=== PATIENT | female | born 1930 | race Caucasian/White ===

== ENCOUNTER 2016-07-22 18:32 | Inpatient (IN) ==
--- NOTE | 2016-07-22 19:14 | PROVIDER DOCUMENTATION ---
HPI-General Adult - General Chief Complaint: Weakness Stated Complaint: FALL Time Seen by Provider: 07/22/16 18:40 Source: patient Allergies/Adverse Reactions: Patient Allergies Allergy/AdvReac Type Severity Reaction Status Date / Time No Known Allergies Allergy Verified 07/11/16 10:10 Home Medications: Home Medication List Medication Instructions Recorded Confirmed Last Taken Type Duloxetine [Cymbalta] 60 mg PO DAILY 01/16/14 07/22/16 1 Day Ago History Gabapentin 300 mg PO TID 01/16/14 07/22/16 1 Day Ago History Triamterene/Hctz [Dyazide] 1 each PO DIRECTED 01/16/14 07/22/16 1 Day Ago History Metoprolol Succinate E.r. [Toprol 50 mg PO DAILY 07/31/14 07/22/16 1 Day Ago History Xl] Losartan Potassium [Cozaar] 100 mg PO QHS #0 08/01/14 07/22/16 1 Day Ago Rx Brimonidine/Timolol Ophth Soln 1 drop LEFT EYE BID 07/11/16 07/22/16 1 Day Ago History [Combigan Ophth Soln] Donepezil [Aricept] 10 mg PO DAILY 07/11/16 07/22/16 3 Days Ago History Dorzolamide 2% Oph Soln [Trusopt 1 drop LEFT EYE TID 07/11/16 07/22/16 1 Day Ago History 2% Oph Soln] Nitrofurantoin Monohyd/M-Cryst 100 mg PO 07/22/16 07/22/16 08:00 History [Macrobid 100 mg Capsule] - History of Present Illness -Gen Adult Nature of Presenting Problems: Pt. is 85 yof that presents with c/o weakness. Pt. family at bedside states that the patient was recently Dx with a UTI and was placed on Bactrim. Pt. began to become altered and the Bactrim was changed to Macrobid and the patient is still altered. Pt. denies any other symptoms and family reports she is lethargic. Location of Pain/Injury: reports: none. denies: head, face, mouth, neck, chest , upper extremity, hand(s), abdomen, back, pelvis, genitalia, lower extremity, feet, upper body, lower body, generalized Pain Radiation: reports: no radiation Quality of Pain: reports: none. denies: aching, burning, cramping, dull, fullness, indigestion, pressure, sharp, stabbing, tearing, throbbing, tightness Severity: reports: moderate. denies: mild, severe Onset/Duration: reports: unsure Timing: reports: still present. denies: improving, gone now, resolved prior to arrival, intermittent, constant, changing over time, getting worse Context/Activities at Onset: reports: none. denies: recent emotional stress, recent physical stress, recent trauma history, possible bad food, cold exposure , out of country travel Modifying Factors: improves with: nothing Associated Symptoms: reports: weakness, trouble walking. denies: anxiety, arm pain, back/neck pain, chest pain, constipation, cough, diaphoresis, diarrhea, dizziness, EENT symptoms, fatigue, fever/chills, genitourinary problems, headaches, heartburn, joint pain, loss of appetite, malaise, muscle aches, sinus congestion/drainage, nausea, rash, seizure, shortness of breath, sensory/ motor loss, pain with inspiration, swelling/mass in abdomen, syncope, vomiting Similar Symptoms Previously?: Yes Recently seen or treated by another doctor?: Yes Review of Systems - Adult - REVIEW OF SYSTEMS - ADULT Constitutional: reports: see HPI. denies: chills, fever, fatique Eyes: reports: see HPI. denies: discharge, blurred vision, double vision Ears, Nose, Mouth & Throat: reports: see HPI. denies: ear discharge, ear pain, hearing loss, sinus problem, nose pain, mouth/dental pain, throat swelling Cardiovascular: reports: see HPI. denies: chest pain, irregular heart rate, palpitations, syncope Respiratory: reports: see HPI. denies: cough, dyspnea on exertion, pleurisy, shortness of breath, wheezing Gastrointestinal: reports: see HPI. denies: abdominal pain, hematemesis, diarrhea, nausea, vomiting Genitourinary: reports: see HPI. denies: dysuria, discharge, hematuria, incontinence, urgency Musculoskeletal: reports: see HPI. denies: bone pain, back pain, joint pain, muscle aches, neck pain Integumentary: reports: see HPI. denies: hives, hair loss, itching, rash, skin thickening Neurological: reports: see HPI. denies: ataxia, headache/migraines, numbness, seizure, tremors Psychiatric: reports: see HPI. denies: anxiety, depression, emotional problems , insomnia, panic attacks, suicidal thoughts Past History - Adult - PAST MEDICAL HISTORY-ADULT Review of Records: reports: Old Records Reviewed, Nursing Assessment Review, Medications Reviewed, Social history reviewed & non-contributory. Major Childhood Illnesses: reports: denies history Cardiovascular: reports: HTN Respiratory: reports: denies history Gastrointestinal: reports: denies history Obstetrical/Gynecological: reports: denies history Genitourinary: reports: denies history Musculoskeletal: reports: other (neuropathy) Neurological: reports: Parkinson's Endocrine/Immune: reports: denies history Other Conditions: reports: denies history - PRIOR SURGERIES/PROCEDURES Surgical/Procedure History: reports: appendectomy, cholecystectomy, hysterectomy - IMMUNIZATION STATUS Childhood Immunizations: See Nurse Assessment Flu Vaccine: See Nurse Assessment - FAMILY HISTORY Family History: reviewed, not pertinent - SOCIAL HISTORY Smoking: non-smoker Physical Exam-General - PHYSICAL EXAM-ADULT Initial Vital Signs Reviewed: Yes - CONSTITUTIONAL General Appearance: moderate distress, obese, lethargic, slow to respond. negative: appears well, alert, thin, anxious, obtunded, combative - EYES Eyes: PERRL/EOMI, pink conjunctivae. negative: conjuctival exudate, scleral icterus, subconjunctival hemorrhage - HEAD, EARS, NOSE, MOUTH & THROAT HENMT: normocephalic/atraumatic, moist mucous membranes. negative: angioedema, frontal tenderness, maxillary tenderness - NECK Neck: non-tender, full range of motion, supple, normal inspection. negative: lymphadenopathy, trachial deviation, thyromegaly - RESPIRATORY Respiratory: lungs clear, normal breath sounds. negative: crackles, rales, rhonchi, stridor, wheezing - CARDIOVASCULAR Cardiovascular: regular rate, rhythm, no edema, no JVD, no murmur, tachycardia. negative: extra beats, friction rub, irregularly irregular - GASTROINTESTINAL (ABDOMEN) Abdominal Exam: normal bowel sounds, non tender, soft. negative: distended, guarding, rigid, rebound, tenderness, hernia, mass - LYMPHATIC Lymphatic: no adenopathy. negative: axilla node tender, cervical node tenderness - MUSCULOSKELETAL Back Exam: normal inspection, no CVA tenderness, no vertebral tenderness. negative: ecchymosis, swelling, vertebral tenderness Extremity: non-tender, normal inspection. negative: deformity, erythema, inflammation, swelling, tenderness Peripheral Pulses: radial (R): 2+, radial (L): 2+ - SKIN Integumentary: normal color, normal turgor, warm/dry. negative: cyanosis, diaphoresis, ecchymosis, erythema, jaundice, mottled, pallor, petechiae, purpura , rash, swelling, tenderness - NEUROLOGIC Neurologic: grossly normal, no motor/sensory deficits. negative: aphasia, facial droop, focal weakness, motor weakness, sensory deficit - PSYCHIATRIC Psych/Mental Status: disoriented x 3. negative: normal mood/affect, normal thought content, normal thought process, oriented x 3, anxious, paranoid, tearful Progress - PLAN OF CARE/RESULTS Progress/Plan/Lab Results: Vital Signs - 8 hr 07/22/16 18:35 Temperature 98.8 F Pulse Rate 107 H Respiratory Rate 18 Blood Pressure 143/87 O2 Sat by Pulse Oximetry 97 Orders Category Date Time Status FSBS [Finger Stick Blood Sugar (ED)] DIRECTED Care 07/22/16 19:08 Ordered Saline Loc NOW Care 07/22/16 19:07 Ordered CHEST-PORTABLE [RAD] Stat Exams 07/22/16 19:08 Ordered CBC WITH ELECTRONIC DIFF [HEME] Stat Lab 07/22/16 19:07 Uncollected CK PROFILE [SP CHEM] Stat Lab 07/22/16 19:07 Uncollected COMPREHENSIVE METABOLIC PANEL [CHEM] Stat Lab 07/22/16 19:07 Uncollected TROPONIN T Stat Lab 07/22/16 19:07 Uncollected URINALYSIS W/POSS RFLX CULT [URINALYSIS] Stat Lab 07/22/16 19:07 Uncollected EKG [EKG] Stat Ther 07/22/16 19:07 Ordered Discussed results and plan of care with patient. Patient agrees with plan and verbalizes understanding Discussed results and plan of care with Dr. Ng and he agrees with plan. Result Diagrams: 07/22/16 19:28 07/22/16 19:28 - XRAY 1 XRAY Study: Chest XRAY Interpretation: Bilateral infiltrates ([place]) - CT/MRI 1 CT Study: Head (No blood, Chronic ischemic changes, No hydro, sinuses clear ( [place])) CT Results: See note - CONSULTS/PCP/HOSPITALIST Notification #1 *Consult/PCP/Hospitalist*: Dr. Holcomb Time Discussed: 21:27 Reason/Comments: Admission Consult Disposition: Will see in ED, Admit Departure - Departure Time of Disposition Decision: 21:19 DIAGNOSIS: Hyponatremia Pneumonia Qualifiers: Pneumonia type: due to unspecified organism Laterality: bilateral Lung location : lower lobe of lung Qualified Code(s): J18.9 - Pneumonia, unspecified organism Disposition: ADMITTED INPATIENT 09 Certified Medical Emergency: Emergent Condition: Stable Referrals and Follow-Ups: Sulma Allen MD [Primary Care Provider] - Attestation - Physician/ MANDY Attestation Patient care was provided by Advanced Practice Provider:: Yes Advanced Practice Provider:: Khushi Elias Advanced Practice Provider documentation review:: The Mid-level provider documentation, treatment plan and medical decision making was reviewed by the physician who agrees with all treatment and medical decision making by the MLP.
[2016-07-22 20:42] LABS: BASO% 0.1 % (0.0-0.8); EOS# 0.61 X1000 (0.0-0.7); EOS% 2.6 % (0.0-10.0); HEMATOCRIT 39.7 % (37.0-47.0); HEMOGLOBIN 13.4 g/dL (12.0-16.0); IMM GRAN# 0.04 X1000 (0.0-0.04); IMM GRAN% 0.2 % (0.0-0.5); LYMPH# 1.36 X1000 (1.2-3.4); LYMPH% 5.8 % (20.5-51.1); MANUAL DIFF NEEDED? NO; MCH 27.8 PG (27-31); MCHC 33.8 g/dL (33-37); MCV 82.4 FL (81-99); MONO# 1.47 X1000 (0.11-0.59); MONO% 6.2 % (1.7-9.3); MPV 9.3 FL (7.4-10.4); NEUT% 85.1 % (42.2-75.2); PLT 306 X1000 (130-400); RBC 4.82 XMIL (4.2-5.4)
--- NOTE | 2016-07-22 20:53 | ED EKG INTERP ---
This chart was entered by Linda Bryan Scribe, acting as scribe for Walt Ng MD. EKG Interpretation - EKG Time of EKG reading by physician:: 19:19 EKG Read and Signed by:: Walt Ng EKG Interpretation (*Must complete 3 of following elements*): Abnormal Rate: 101 Rhythm: sinus tachycardia [place]: left QRS: LVH (minimal voltage criteria) This chart was documented by the indicated scribe, (Linda Bryan Scribe) and accurately reflects the services I performed and decisions made by me, Walt Ng MD, as attested by the provider's signature.
[2016-07-22 21:00] LABS: ALBUMIN 3.5 g/dL (3.5-5.0); CALCIUM 9.3 mg/dL (8.8-10.2); POTASSIUM 3.3 mmol/L (3.5-5.1); TOTAL BILIRUBIN 0.92 mg/dL (0.20-1.00); TOTAL PROTEIN 6.8 g/dL (6.3-8.3)
[2016-07-22] MEDS ORDERED: ROCEPHIN 1 GM/NS 1 GM/50 ML IVPB IV ONE (21:21)
[2016-07-22] MEDS ORDERED: ZITHROMAX 500 MG/NS 500 MG/250 ML IVPB IV ONE (21:22)
[2016-07-22 21:24] LABS: URINE SOURCE CATH
[2016-07-22 21:25] LABS: URINE EPITHELIAL CELLS <10 /HPF (<10); URINE RBC 20-40 /HPF (<10); URINE WBC <10 /HPF (<10)
[2016-07-22 21:26] LABS: BILIRUBIN URINE NEGATIVE (NEGATIVE); BLOOD URINE MODERATE (NEGATIVE); CLARITY CLEAR (CLEAR); COLOR YELLOW; GLUCOSE URINE NEGATIVE (NEGATIVE); NITRITE URINE NEGATIVE (NEGATIVE); PROTEIN URINE NEGATIVE (NEGATIVE); UROBILINOGEN URINE 0.2 EU/dL (0.2-1.0)
[2016-07-22 21:27] LABS: LEUKOCYTES URINE NEGATIVE (NEGATIVE); URINE CULTURE NEEDED? YES
--- NOTE | 2016-07-22 23:10 | HISTORY AND PHYSICAL ---
PRIMARY CARE PHYSICIAN: Dr. Sulma Allen. CHIEF COMPLAINT: Mental status changes and lethargy. HISTORY OF PRESENTING ILLNESS: An 85-year-old, elderly female, with a history of peripheral neuropathy, hypertension and dementia, basically requiring a walker to ambulate over the past 4 days or so, was having mental status changes. As per her son, the patient was recently diagnosed with the UTI, initially put on Bactrim and she had some side effects, and then antibiotics was changed to Macrobid and she had some improvement, but over past 2 days she declined again. She was becoming more confused, and was unable to get out of her bed, and subsequently the patient was brought to the emergency department. In the ER, she was evaluated. She was still moderately confused, however, she had denied any headache, chest pain, shortness of breath, hemoptysis or any weight changes. Patient is a poor historian, and as discussed, most of the history is obtained from her son. PAST MEDICAL HISTORY: Include peripheral neuropathy, hypertension, dementia. PAST SURGICAL HISTORY: Cholecystectomy, hysterectomy. ALLERGIES: No known drug allergies. CURRENT MEDICATIONS: Include Dyazide 1 tab p.o. daily, Cymbalta 60 mg p.o. daily, gabapentin 300 mg p.o. t.i.d., metoprolol succinate ER 50 mg p.o. daily, losartan 100 mg p.o. daily, Combigan 1 drop in left eye b.i.d., Aricept 10 mg p.o. daily, nitrofurantoin 100 mg p.o. daily. SOCIAL HISTORY: There is no history of smoking, alcohol or illicit drug use. Patient is only ambulatory with a walker. FAMILY HISTORY: No history of coronary disease. REVIEW OF SYSTEMS: Limited, however, her 10 point review of system was obtained as in HPI. PHYSICAL EXAMINATION: GENERAL: The patient is resting more comfortably now, but she is mildly confused. VITAL SIGNS: Temperature 98.8, pulse 107, respirations 18, blood pressure 143/ 87. She is sating 97%. HEENT: Atraumatic, normocephalic. PERRLA. NECK: No masses. CHEST: Bibasilar rales. CARDIOVASCULAR: Regular rate and rhythm. ABDOMEN: Soft. Positive bowel sounds. EXTREMITIES: Trace edema. NEURO: She is awake, alert, not really oriented to person, place or time. EXTREMITIES: Strength 4/5 bilateral lower extremities. : No bladder distention. SKIN: Warm. LABORATORIES AND STUDIES: Sodium 130, potassium 3.3, chloride 91, CO2 of 22, BUN is 19, creatinine is 1.1, glucose is 153. ProBNP is 993. WBCs 23.64, hemoglobin 13.4 , hematocrit 39.7, platelets 306,000. UA is negative for any white cells or bacteria. ASSESSMENT: An 85-year-old female, with a history of peripheral neuropathy, hypertension and dementia, who was brought to the emergency department due to worsening confusion. She was recently treated for a UTI, however, she only had some minimal improvement. She was evaluated in the ER, she was found to have an elevated white count, and also a chest x-ray that was suspicious for bilateral infiltrates, and due to these presenting symptoms, it was thought that she would need hospitalization for further management. ASSESSMENT: 1. Altered mental status, multifactorial, could be related to recent infection versus underlying dementia. 2. Leukocytosis. 3. Suspected pneumonia. 4. Mild hyponatremia. 5. Mild dehydration. 6. Hypertension. PLAN: 1. We will admit patient to medical floor with telemetry. 2. We will continue with neuro checks. 3. We will order a CT scan of the head without. 4. We will check blood cultures and start patient on IV antibiotics. 5. Continue with gentle hydration. 6. We will restart her home medications for her dementia. 7. We will monitor blood pressure, resume antihypertensive agent. 8. We will put patient on DVT for prophylaxis with SCDs. 9. The patient is a DNR level 1, as per son, who has had the durable healthcare power. 10. We will continue to follow and reassess. cc: MD PAO Li
[2016-07-22] MEDS ORDERED: NS 1,000 ML IV SCH (23:47)
[2016-07-23] MEDS ORDERED: NS 500 ML IV ONE (02:18)
[2016-07-23 06:30] LABS: BASO% 0.1 % (0.0-0.8); EOS# 0.47 X1000 (0.0-0.7); EOS% 2.4 % (0.0-10.0); HEMOGLOBIN 13.2 g/dL (12.0-16.0); IMM GRAN# 0.04 X1000 (0.0-0.04); IMM GRAN% 0.2 % (0.0-0.5); LYMPH# 1.01 X1000 (1.2-3.4); LYMPH% 5.1 % (20.5-51.1); MANUAL DIFF NEEDED? YES; MCH 28.2 PG (27-31); MCHC 33.8 g/dL (33-37); MCV 83.3 FL (81-99); MONO% 5.1 % (1.7-9.3); NEUT% 87.1 % (42.2-75.2); PLT 277 X1000 (130-400); RBC 4.68 XMIL (4.2-5.4)
[2016-07-23 06:36] LABS: AGAP 15; BUN 17 mg/dL (8-22); CALCIUM 8.7 mg/dL (8.8-10.2); CHLORIDE 95 mmol/L (98-107); COSMO 271; POTASSIUM 3.3 mmol/L (3.5-5.1); SODIUM 133 mmol/L (136-145); TCO2 23 mmol/L (25-35)
--- NOTE | 2016-07-23 06:53 | Diag Imaging Result Document ---
PROCEDURE NAME: HEAD W/O CONTRAST - 07/22/2016 CT BRAIN WITHOUT CONTRAST: COMPARISON: 07/31/2014. FINDINGS: No parenchymal hemorrhage. No epidural or subdural hematoma. No subarachnoid hemorrhage. There are chronic microvascular ischemic changes. No hydrocephalus. No mass identified on this noncontrasted study. No sinus opacification. IMPRESSION: 1. No hemorrhage. 2. Chronic microvascular ischemic changes. A preliminary report was given at 10:30 p.m..
--- NOTE | 2016-07-23 06:59 | Diag Imaging Result Document ---
PROCEDURE NAME: CHEST-PORTABLE - 07/22/2016 PORTABLE UPRIGHT CHEST: COMPARISON: 07/31/2014. FINDINGS: There are increased interstitial markings throughout both lungs on the current exam. I believe there is a small left effusion and the left hemidiaphragm may be elevated. The heart is not enlarged. IMPRESSION: Bilateral infiltrates believed to be pulmonary edema. Follow-up PA and lateral recommended.
[2016-07-23 07:34] LABS: BANDS 4 % (0-1); LYMPHS 6 % (21-51); MONO 2 % (1-9)
[2016-07-23] MEDS ORDERED: DUONEB (A & A) INH PRN (11:46)
--- NOTE | 2016-07-23 12:21 | Diag Imaging Result Document ---
PROCEDURE NAME: ANGIOGRAM/PULMONARY ARTERIES - 07/23/2016 CT PULMONARY ANGIOGRAM WITH INTRAVENOUS CONTRAST: A CT dose reduction protocol was used. COMPARISON: CT chest 12/20/2013. FINDINGS: Axial CT images of the chest were obtained after administering intravenous contrast. Coronal MIP images were generated. There is no definite pulmonary embolism. There is cardiomegaly. There is bilateral hilar adenopathy with nodes measuring up to 3.4 x 2.2 cm. There is central interstitial ground-glass infiltrate bilaterally and trace pleural effusions. This is compatible with pulmonary edema. There is also persistent pulmonary fibrosis. There is some consolidation in the left lower lobe as well. Upper abdominal images are normal. Degenerative changes of the spine. No acute or destructive bony lesions. IMPRESSION: 1. Cardiomegaly, pulmonary edema, pleural effusions. 2. Left lower lobe infiltrate/pneumonia. 3. Left hilar adenopathy, nonspecific. Followup will be necessary. [facility]
--- NOTE | 2016-07-23 12:38 | PROGRESS NOTE ---
DATE: 07/23/2016 SUBJECTIVE: The patient reports breathing better and feeling better. Denies any fever, chills, or shortness of breath. OBJECTIVE: Vital Signs: Temperature 97.7 degrees, heart rate 129, respiratory rate 17, blood pressure 164/83, and O2 saturation 99% on 4 liters nasal cannula. General: This is an 85-year- old female, lying in bed, in no acute distress. HEENT: Head is normocephalic, atraumatic. Anicteric sclerae and pale conjunctivae. Mucous membranes moist. Neck: Supple. No JVD noted. No carotid bruits. No lymphadenopathy. No thyromegaly. Cardiovascular: S1 and S2 heard. No murmurs, gallops, or rubs. Regular rate and rhythm. Respiratory: Clear bilaterally to auscultation. No work of breathing or using accessory muscles. Abdomen: Soft. Nontender to palpation. Bowel sounds present. No organomegaly. Extremities: No clubbing, cyanosis, or edema. Peripheral pulses present in both legs. Neurological: The patient is alert and oriented x3. Moves 4 extremities. LABORATORY DATA: White cell count 19.7, hemoglobin 13.2, hematocrit 39, platelets 277,000. Sodium 133, potassium 3.3, chloride 95, bicarbonate 23, creatinine 0.8, and BUN 17. ASSESSMENT: 1. Acute respiratory failure. 2. Community-acquired pneumonia. 3. Mild hyponatremia. 4. Hypertension. 5. Mild dehydration. PLAN: The patient was admitted to the hospital for the conditions as mentioned above. We are going to continue with IV antibiotics. In this case, we will continue with ceftriaxone, and we are going to add Levaquin to her current treatment. We will add a breathing treatment with albuterol and Atrovent every 4 hours p.r.n. considering that she is using 4 liters of oxygen by nasal cannula. Her hyponatremia is improved. We will continue with IV fluids. For her hypertension, considering that she is on Toprol-XL and losartan, we most generally add amlodipine to her current treatment. Further recommendations to follow according to the clinical situation of the patient. cc: Alexis Malik MD
[2016-07-23] MEDS: NEURONTIN PO SCH ×3 (13:25→17:44)
[2016-07-23] MEDS: CYMBALTA PO SCH (13:26)
[2016-07-23] MEDS: ARICEPT PO SCH (13:26)
[2016-07-23] MEDS: TOPROL XL PO SCH (13:26)
[2016-07-23] MEDS: COMBIGAN OPHTH SOLN LEFT EYE SCH ×2 (13:28→22:26)
[2016-07-23] MEDS: TRUSOPT 2% OPH SOLN LEFT EYE SCH ×4 (13:29→17:44)
[2016-07-23] MEDS: NORVASC PO SCH ×3 (13:48→22:26)
[2016-07-23] MEDS: LEVAQUIN 750 MG/D5W 750 MG/150 ML IVPB IV SCH (15:33)
[2016-07-23] MEDS: DUONEB (A & A) INH SCH ×3 (16:16→23:20)
[2016-07-23] MEDS ORDERED: ZITHROMAX 500 MG/NS 500 MG/250 ML IVPB IV SCH (22:00)
[2016-07-23] MEDS: COZAAR PO SCH ×2 (22:25→22:27)
[2016-07-23] MEDS: ROCEPHIN 1 GM/NS 1 GM/50 ML IVPB IV SCH (22:25)
[2016-07-23] MEDS: LASIX IV SCH (22:25)
[2016-07-24] MEDS: DUONEB (A & A) INH SCH ×6 (03:31→23:27)
[2016-07-24] MEDS: TRUSOPT 2% OPH SOLN LEFT EYE SCH ×3 (10:22→16:39)
[2016-07-24] MEDS: COMBIGAN OPHTH SOLN LEFT EYE SCH ×2 (10:22→20:52)
[2016-07-24] MEDS: NORVASC PO SCH ×2 (10:23→20:52)
[2016-07-24] MEDS: CYMBALTA PO SCH (10:23)
[2016-07-24] MEDS: ARICEPT PO SCH (10:24)
[2016-07-24] MEDS: NEURONTIN PO SCH ×3 (10:24→16:38)
[2016-07-24] MEDS: LASIX IV SCH ×2 (10:24→20:52)
[2016-07-24] MEDS: TOPROL XL PO SCH (10:25)
[2016-07-24 11:34] LABS: MANUAL DIFF NEEDED? NO
[2016-07-24 11:38] LABS: BASO% 0.2 % (0.0-0.8); EOS# 0.69 X1000 (0.0-0.7); EOS% 6.2 % (0.0-10.0); HEMOGLOBIN 12.1 g/dL (12.0-16.0); IMM GRAN# 0.03 X1000 (0.0-0.04); IMM GRAN% 0.3 % (0.0-0.5); MCH 28.3 PG (27-31); MCHC 33.6 g/dL (33-37); MCV 84.3 FL (81-99); MONO# 1.24 X1000 (0.11-0.59); MONO% 11.2 % (1.7-9.3); NEUT% 64.1 % (42.2-75.2); PLT 266 X1000 (130-400); RBC 4.27 XMIL (4.2-5.4)
[2016-07-24] MEDS: LEVAQUIN 750 MG/D5W 750 MG/150 ML IVPB IV SCH (11:42)
[2016-07-24 11:53] LABS: CALCIUM 8.2 mg/dL (8.8-10.2); POTASSIUM 3.4 mmol/L (3.5-5.1)
--- NOTE | 2016-07-24 15:24 | PROGRESS NOTE ---
DATE: 07/24/2016 SUBJECTIVE: Patient reports feeling better. No fever or chills. Breathing is definitely much better, according to her. OBJECTIVE: Vital Signs: Temperature 98.0 degrees, heart rate 94, respiratory rate 17, blood pressure 137/84, and O2 saturation 96% on room air. General Examination: This is an 85-year-old female, lying in bed in no acute distress. HEENT: Head is normocephalic, atraumatic. Anicteric sclerae and pale conjunctivae. Mucous membranes moist. Neck: Supple. No JVD noted. No carotid bruits. No lymphadenopathy. No thyromegaly. Cardiovascular Examination: S1 and S2 heard. No murmurs, gallops, or rubs. Regular rate and rhythm. Respiratory: Decreased breath globally with some coarse breath sounds in both bases, but the patient is not using any accessory muscles or having work of breathing. Abdomen: Soft, nontender to palpation. Bowel sounds present. No organomegaly. Extremities: No clubbing, cyanosis, or edema. Peripheral pulses present in both legs. Neurologic: Patient is alert and oriented x3. Able to move 4 extremities. LABORATORY DATA: White cell count of 11.12, hemoglobin 12.1, hematocrit 36.0, and platelets 266,000. BMP unremarkable except for mild elevation of creatinine to 1.2. ASSESSMENT AND PLAN: 1. Acute respiratory failure. 2. Community-acquired pneumonia. 3. Mild hyponatremia. 4. Hypertension. 5. Mild dehydration. PLAN: 1. The patient clinically is improving, using less oxygen. Her oxygen need is going down. Currently, she is using 2L of oxygen by nasal cannula. She is on ceftriaxone and Levaquin. Also, she is getting breathing treatments daily. At this point, we are going to continue with the same treatment. 2. For blood pressure, the patient is on Toprol-XL and losartan, and we have added amlodipine to her current treatment. Blood pressure is definitely much better controlled. At this time, we will continue with the same management. 3. Because patient is very weak, we have consulted the social work faculty member, as she most probably will need a rehabilitation facility. cc: Alexis Malik MD
[2016-07-24] MEDS: ROCEPHIN 1 GM/NS 1 GM/50 ML IVPB IV SCH (20:52)
[2016-07-24] MEDS: COZAAR PO SCH ×2 (20:52→20:53)
[2016-07-24] MEDS ORDERED: DUONEB (A & A) ONE (23:17)
[2016-07-25] MEDS ORDERED: CARDIZEM 100 MG/NS 100 MG/100 ML IVPB IV SCH (01:46)
[2016-07-25] MEDS ORDERED: CARDIZEM IV ONE (01:46)
[2016-07-25] MEDS: DUONEB (A & A) INH SCH ×6 (02:55→22:33)
[2016-07-25 06:19] LABS: MANUAL DIFF NEEDED? NO
[2016-07-25 06:24] LABS: BASO% 0.2 % (0.0-0.8); EOS# 0.58 X1000 (0.0-0.7); EOS% 4.7 % (0.0-10.0); HEMATOCRIT 36.7 % (37.0-47.0); HEMOGLOBIN 12.3 g/dL (12.0-16.0); IMM GRAN# 0.05 X1000 (0.0-0.04); IMM GRAN% 0.4 % (0.0-0.5); LYMPH# 2.77 X1000 (1.2-3.4); LYMPH% 22.6 % (20.5-51.1); MCH 28.3 PG (27-31); MCHC 33.5 g/dL (33-37); MCV 84.6 FL (81-99); MONO# 1.44 X1000 (0.11-0.59); MONO% 11.8 % (1.7-9.3); MPV 8.9 FL (7.4-10.4); NEUT% 60.3 % (42.2-75.2); PLT 272 X1000 (130-400); RBC 4.34 XMIL (4.2-5.4)
[2016-07-25 06:43] LABS: CALCIUM 8.8 mg/dL (8.8-10.2); POTASSIUM 3.3 mmol/L (3.5-5.1)
[2016-07-25] MEDS: ARICEPT PO SCH (08:35)
[2016-07-25] MEDS: CYMBALTA PO SCH (08:36)
[2016-07-25] MEDS: TOPROL XL PO SCH (08:36)
[2016-07-25] MEDS: LASIX IV SCH (08:37)
[2016-07-25] MEDS: NEURONTIN PO SCH ×3 (08:37→16:51)
[2016-07-25] MEDS: COMBIGAN OPHTH SOLN LEFT EYE SCH ×2 (08:38→21:40)
[2016-07-25] MEDS: TRUSOPT 2% OPH SOLN LEFT EYE SCH ×3 (08:39→16:52)
[2016-07-25] MEDS: LEVAQUIN 750 MG/D5W 750 MG/150 ML IVPB IV SCH (11:00)
--- NOTE | 2016-07-25 13:32 | Diag Imaging Result Document ---
PROCEDURE NAME: CHEST-PORTABLE - 07/25/2016 PORTABLE CHEST: FINDINGS: Compared to 07/22/2016. There has been interval decrease in bilateral infiltrates. There are mild residual infiltrates or atelectasis at the lung bases. There is elevation of the left hemidiaphragm. There is no pleural effusion or pneumothorax identified. Heart size appears stable. IMPRESSION: Interval decrease in bilateral infiltrates.
--- NOTE | 2016-07-25 16:10 | PROGRESS NOTE ---
DATE: 07/25/2016 SUBJECTIVE: Patient reports feeling fine. Denies any chest pain, any palpitations, fever or chills and she is breathing okay according to her. OBJECTIVE: Vital Signs: Temperature 98.0 degrees, heart rate 98, respiratory 16, blood pressure 121/71, O2 saturation 98% 2 L nasal cannula. General Examination: This is an 85-year-old female lying in bed in no acute distress. HEENT: Head is normocephalic, atraumatic. Anicteric sclerae and pale conjunctivae. Mucous membranes moist. Neck: Supple. No JVD noted. No carotid bruits. No lymphadenopathy. No thyromegaly. Cardiovascular: S1, S2 heard. No murmurs, gallops, or rubs. Regular rate and rhythm. Respiratory: Decreased breath sounds globally with some coarse breath sounds in both bases but patient not using any accessory muscles or having work of breathing. Abdomen: Soft, nontender to palpation. Bowel sounds present. No organomegaly. Extremities: No clubbing, cyanosis, or edema. Peripheral pulses present in both legs. Neurologic exam: Patient alert, oriented x3. Able to move 4 extremities. LABORATORY DATA: White cell count 12.33, hemoglobin 12.3, hematocrit 36.7, platelets 272,000. Sodium 133, potassium 3.3, chloride 94, bicarbonate 25, BUN 13, creatinine 1.6. ASSESSMENT AND PLAN: 1. Acute respiratory failure. 2. Community-acquired pneumonia. 3. Acute kidney injury. 4. Paroxysmal atrial fibrillation. 5. Mild hyponatremia. 6. Hypertension. PLAN: Patient has been admitted to the hospital for acute respiratory failure, pneumonia, it is being treated but yesterday overnight she started having an episode of paroxysmal atrial fibrillation with heart rate that went to 150. At this time we are going to check an ultrasound. The patient has been started on ceftriaxone, Levaquin and for possible QT prolongation will prefer to stop Levaquin and continue with ceftriaxone. Will continue also with nebulizations. Also for blood pressure the patient has been added amlodipine to her current treatment and blood pressure now is much better controlled and for physical deconditioning patient is supposed to work with physical therapy and social sciences chair has been consulted for possible rehab facility need. cc: Alexis Malik MD
[2016-07-25] MEDS: ROCEPHIN 1 GM/NS 1 GM/50 ML IVPB IV SCH (21:40)
[2016-07-26] MEDS: DUONEB (A & A) INH SCH ×7 (03:20→22:52)
[2016-07-26 04:55] LABS: MANUAL DIFF NEEDED? NO
[2016-07-26 05:01] LABS: BASO% 0.3 % (0.0-0.8); EOS# 0.76 X1000 (0.0-0.7); EOS% 6.5 % (0.0-10.0); HEMATOCRIT 37.5 % (37.0-47.0); HEMOGLOBIN 12.5 g/dL (12.0-16.0); IMM GRAN# 0.05 X1000 (0.0-0.04); IMM GRAN% 0.4 % (0.0-0.5); LYMPH% 20.7 % (20.5-51.1); MCH 28.2 PG (27-31); MCHC 33.3 g/dL (33-37); MCV 84.7 FL (81-99); MONO# 1.42 X1000 (0.11-0.59); MONO% 12.2 % (1.7-9.3); MPV 8.9 FL (7.4-10.4); NEUT% 59.9 % (42.2-75.2); PLT 279 X1000 (130-400); RBC 4.43 XMIL (4.2-5.4)
[2016-07-26 05:20] LABS: CALCIUM 8.9 mg/dL (8.8-10.2); POTASSIUM 3.4 mmol/L (3.5-5.1)
--- NOTE | 2016-07-26 05:36 | EKG Report ---
Test Performed on : 07/25/2016 00:54:26 AM Test Reason : rythym change Blood Pressure : / mmHG Vent. Rate : 133 BPM Atrial Rate : 079 BPM P-R Int : 000 ms QRS Dur : 088 ms QT Int : 312 ms P-R-T Axes : 000 -19 -49 degrees QTc Int : 464 ms Atrial fibrillation. with rapid ventricular response. Nonspecific T wave abnormality Abnormal ECG When compared with ECG of 22-JUL-2016 19:19, (Unconfirmed) Atrial fibrillation. has replaced Sinus rhythm. Nonspecific T wave abnormality now evident in Lateral leads Confirmed by Natalya HESS, Derek Carlson ([id number]) on 07/26/2016 8:59:11 AM
--- NOTE | 2016-07-26 05:37 | EKG Report ---
Test Performed on : 07/25/2016 02:04:56 AM Test Reason : Rhythm change Blood Pressure : / mmHG Vent. Rate : 106 BPM Atrial Rate : 106 BPM P-R Int : 158 ms QRS Dur : 084 ms QT Int : 346 ms P-R-T Axes : 012 -20 026 degrees QTc Int : 459 ms Sinus tachycardia. Nonspecific T wave abnormality Abnormal ECG When compared with ECG of 25-JUL-2016 00:54, (Unconfirmed) Sinus rhythm. has replaced Atrial fibrillation. Confirmed by Natalya HESS, Derek Carlson ([id number]) on 07/26/2016 8:59:22 AM
[2016-07-26] MEDS: NEURONTIN PO SCH ×3 (08:20→17:14)
[2016-07-26] MEDS: TOPROL XL PO SCH (08:20)
[2016-07-26] MEDS: ARICEPT PO SCH (08:20)
[2016-07-26] MEDS: CYMBALTA PO SCH (08:20)
[2016-07-26] MEDS: TRUSOPT 2% OPH SOLN LEFT EYE SCH ×3 (08:33→17:14)
[2016-07-26] MEDS: COMBIGAN OPHTH SOLN LEFT EYE SCH ×2 (08:42→21:28)
[2016-07-26] MEDS ORDERED: GOLYTELY PO ONE (09:01)
--- NOTE | 2016-07-26 13:50 | ECHO REPORT ---
ORDER DATE: 07/25/2016 ECHOCARDIOGRAPHIC MEASUREMENTS: 1. Interventricular septum 1.2. Left ventricular posterior wall 1.2. Diastolic diameter 3.0. Left atrium 3.4. Aorta 3.4. 2. Technically suboptimal study. Aortic valve leaflets were trileaflet, sclerosed, opening normally. Pulmonic valve was normal. There was trace pulmonary regurgitation. 3. Normal left ventricular cavity size. Mild left ventricular hypertrophy. Estimated ejection fraction of 60-65%. 4. Hyperdynamic circulation noted. 5. Peak velocity across the aortic valve less than 2 m/sec. There is no aortic stenosis. 6. There is trace mitral regurgitation. 7. There is left atrial enlargement. 8. There was trace aortic regurgitation. 9. There is trace tricuspid regurgitation. Peak velocity across the tricuspid valve less than 2 m/sec. cc: MD Bucky Salazar CRNP
--- NOTE | 2016-07-26 17:19 | PROGRESS NOTE ---
DATE: 07/26/2016 SUBJECTIVE: Patient reports breathing better. Denies any chest pain, any chest discomfort or any sensation of palpitations. OBJECTIVE: Vital Signs: Temperature 97.8 degrees, heart rate 79, respiratory rate 18, blood pressure 115/65, O2 saturation 99% on 2 L nasal cannula. General Examination: This is an 85- year-old, female, lying in bed, in no acute distress. HEENT: Head is normocephalic, atraumatic. Anicteric sclerae and pale conjunctivae. Mucous membranes moist. Neck: Supple. No JVD noted. No carotid bruits. No lymphadenopathy. No thyromegaly. Cardiovascular Examination: S1-S2 heard. No murmur, gallops or rubs. Regular rate and rhythm. Respiratory Examination: Clear bilaterally to auscultation. No work of breathing or using accessory muscles. Abdomen: Decreased breath sounds globally with some coarse breath sounds more predominant in both bases, but patient is not using any accessory muscles or having work of breathing. Abdomen: Soft, nontender to palpation, bowel sounds present, no organomegaly. Extremities: No clubbing, cyanosis, or edema. Peripheral pulses present in both legs. Neurological: Patient alert and oriented x3. Able to move 4 extremities. LABORATORY DATA: White cell count is 11.62. BMP shows 113 creatinine. ASSESSMENT: 1. Acute respiratory failure. 2. Community-acquired pneumonia. 3. Acute kidney injury. 4. Paroxysmal atrial fibrillation. 5. Mild hyponatremia. 6. Hypertension. PLAN: 1. The patient has been admitted to the hospital for acute respiratory failure secondary to pneumonia. The patient was being treated with ceftriaxone and Levaquin. Because of an episodes of paroxysmal atrial fibrillation we have stopped Levaquin for possible suspicion for QT prolongation syndrome. In any case the patient is on ceftriaxone, she is on nebulizations and is requiring 2 L of oxygen so I think this patient is stable. Patient has been evaluated by Physical Therapy and they recommend inpatient rehabilitation. 2. At this time the social media content specialist has been consulted and we are basically waiting for a bed for her for acute kidney injury. Creatinine is almost back to normal. 3. Hypertension: Blood pressure is under control with current medications. We will continue with the same management. cc: Alexis Malik MD
[2016-07-26] MEDS: ROCEPHIN 1 GM/NS 1 GM/50 ML IVPB IV SCH (21:28)
[2016-07-27] MEDS: DUONEB (A & A) INH SCH ×4 (03:04→14:46)
[2016-07-27 05:02] LABS: MANUAL DIFF NEEDED? NO
[2016-07-27 05:08] LABS: BASO% 0.3 % (0.0-0.8); EOS# 0.79 X1000 (0.0-0.7); EOS% 7.2 % (0.0-10.0); HEMATOCRIT 38.3 % (37.0-47.0); HEMOGLOBIN 12.8 g/dL (12.0-16.0); IMM GRAN# 0.05 X1000 (0.0-0.04); IMM GRAN% 0.5 % (0.0-0.5); LYMPH# 2.37 X1000 (1.2-3.4); LYMPH% 21.7 % (20.5-51.1); MCH 28.3 PG (27-31); MCHC 33.4 g/dL (33-37); MCV 84.5 FL (81-99); MONO# 1.05 X1000 (0.11-0.59); MONO% 9.6 % (1.7-9.3); MPV 8.9 FL (7.4-10.4); NEUT% 60.7 % (42.2-75.2); PLT 275 X1000 (130-400); RBC 4.53 XMIL (4.2-5.4)
[2016-07-27 05:20] LABS: CALCIUM 8.6 mg/dL (8.8-10.2); POTASSIUM 3.1 mmol/L (3.5-5.1)
[2016-07-27] MEDS: CYMBALTA PO SCH (08:51)
[2016-07-27] MEDS: TOPROL XL PO SCH (08:52)
[2016-07-27] MEDS: COMBIGAN OPHTH SOLN LEFT EYE SCH (08:52)
[2016-07-27] MEDS: NEURONTIN PO SCH ×2 (08:52→13:49)
[2016-07-27] MEDS: ARICEPT PO SCH (08:52)
[2016-07-27] MEDS: TRUSOPT 2% OPH SOLN LEFT EYE SCH ×2 (08:53→13:49)
[2016-07-27] MEDS ORDERED: KLOR-CON PO ONE (08:55)
[2016-07-27 11:38] VITALS: BP 127/77
--- NOTE | 2016-07-27 14:35 | PROGRESS NOTE ---
DATE: 07/27/2016 SUBJECTIVE: This patient states that she is feeling better. She is not complaining of shortness of breath today. She denies chest pain or palpitations. OBJECTIVE: Vital Signs: Temperature 98.6 degrees, pulse 87, respiratory rate 18, blood pressure 127/77, oxygen saturation 94% on 2 L of nasal cannula. HEENT: Head normocephalic. No trauma. PERRLA. Neck: Supple. No JVD. No masses. Central trachea. Cardiovascular: RRR. No murmurs. Chest: Decreased breath sounds globally with some coarse breath sounds, more predominant at the level of the bases. She is not having work of breathing. Abdomen: Soft, nontender, nondistended. No hepatosplenomegaly. Extremities: No edema. No clubbing. No cyanosis. Neurological: The patient is alert and oriented x3. She moves all 4 extremities. LABORATORY: WBC 10.9, hemoglobin 12.8, hematocrit 38.3, platelet 275,000. Sodium 137, potassium 3.1, chloride 96, bicarbonate 27, BUN 26, creatinine 1, glucose 117, calcium 8.6. ASSESSMENT AND PLAN: 1. Community-acquired pneumonia. We will continue with antibiotics. She is receiving right now ceftriaxone. Will monitor. It looks like this patient is getting better. 2. Acute respiratory failure. Resolved. 3. Acute kidney injury. The creatinine is getting better. It is close to her baseline. 4. Paroxysmal atrial fibrillation. This patient's heart rate is stable and she is in sinus rhythm at this moment. We will continue with metoprolol succinate. I do not see any anticoagulation treatment at least in her home medications. 5. Mild hyponatremia. Resolved. 6. Hypokalemia. I will replace the potassium today. 7. Hypertension, stable. Continue with the same management. 8. This patient is looking much better. Probably she will be discharged to a rehab center. floor worker transfer bay is on board. cc: Bryant Skaggs MD
--- NOTE | 2016-07-27 15:18 | DISCHARGE SUMMARY ---
ADMISSION DATE: 07/22/2016 DISCHARGE DATE: 07/27/2016 CONSULTATIONS: None. PERTINENT PROCEDURES: 1. Head CT showed no hemorrhage, chronic microvascular ischemic changes. 2. Pulmonary arteriogram showed cardiomegaly, pulmonary edema, pleural effusion, left lower lobe infiltrate, pneumonia, left hilar adenopathy nonspecific. DISCHARGE DIAGNOSES: 1. Community-acquired pneumonia. Continue with p.o. antibiotics. 2. Acute respiratory failure resolved. 3. Acute kidney injury improving. 4. Paroxysmal atrial fibrillation. Stable sinus rhythm. Continue her metoprolol. The patient was not on any type of anticoagulation. 5. Mild hyponatremia resolved. 6. Hypokalemia replenished. 7. Hypertension stable. 8. Do Not Resuscitate level 1 while in our facility. HOSPITAL COURSE: Briefly, Ms Roa is an 85-year-old female with a history of peripheral neuropathy, hypertension, dementia. Has been requiring a walker to ambulate over the past 4 days or so. Was having mental status changes per her son. She was recently diagnosed with a UTI and initially put on Bactrim. She had some side effects and her antibiotic was changed to Macrobid. She did have some improvement, but over 2 days prior to her admission she began to decline again. She became more confused. She was unable to get out of bed. She was evaluated in the ED. She was moderately confused. Her white count was 23. Her UA was negative. The patient was admitted for suspected pneumonia. Pulmonary arteriogram did show left lower lobe infiltrate and pneumonia as well as pulmonary edema and pleural effusions. She was continued on IV antibiotics and added breathing treatments with bronchodilators and aggressive pulmonary toilet and supplemental O2. The patient did have a suspicion for QT prolongation so her Levaquin was discontinued. She was continued on ceftriaxone. The patient has been evaluated by physical therapy. They have recommended inpatient rehabilitation. Boiler Inspector was consulted. Patient does have a bed today at [facility]. VITAL SIGNS AT TIME OF DISCHARGE: Temperature is 98.6 degrees, heart rate 87, respirations 18, blood pressure 127/77, O2 was 94% on 2 L nasal cannula. DISCHARGE DIET: Regular. DISCHARGE MEDICATIONS: 1. Combigan ophthalmic solution 1 drop left eye. 2. Keflex 500 mg p.o. q.12 hours. 3. Aricept 10 mg p.o. daily. 4. Trusopt 2% ophthalmic solution 1 drop left eye t.i.d. 5. Gabapentin 300 mg p.o. t.i.d. 6. Cymbalta 60 mg p.o. daily. 7. Cozaar 100 mg p.o. at bedtime. 8. Toprol 50 mg p.o. daily. 9. Dyazide 1 each p.o. as directed. FOLLOWUP: Patient is being discharged to [facility]. She was a DNR level 1 while in our facility. Patient can return to the ED for any worsening of symptoms. DISCHARGE TIME: Thirty minutes. Dictated by SHAMAR Brown for Bryant Skaggs MD cc: MD Sulma Glover MD
[2016-07-27] MEDS ORDERED: KEFLEX PO SCH (21:00)
== END 2016-07-27 17:30 ==
LOC: SUPCPDRO → ED 18:32 → 4N 23:34 → SUATTDRO 23:34 → 3S 07-25 01:45
PROVIDERS: ATTEND Internal Medicine